=== PATIENT | female | born 1955 | race Hispanic/Latino ===

== ENCOUNTER 2022-01-02 13:45 | Outpatient (CLI) | payer OTHER | END 2022-01-02 13:46 | disposition home or self-care (01) | LOC: BICMAMMO 13:45 | PROVIDERS: ATTEND Nurse Practitioner Family | DX: Z12.31 Encounter for screening mammogram for malignant neoplasm of breast (principal) | CPT/HCPCS: 77063; 77067 ==

== ENCOUNTER 2022-01-31 08:19 | Outpatient (CLI) | payer OTHER ==
[2022-01-31] MEDS ORDERED: Iopamidol 370 76% 100 ML VIAL ONE (09:18)
== END 2022-01-31 08:20 | disposition home or self-care (01) ==
LOC: BICCT 08:19
PROVIDERS: ATTEND Neurological Surgery
DX: M50.11 Cervical disc disorder with radiculopathy, high cervical region (principal); M51.16 Intervertebral disc disorders with radiculopathy, lumbar region; R51.9 Headache, unspecified; M54.81 Occipital neuralgia; M51.37 Other intervertebral disc degeneration, lumbosacral region; M51.25 Other intervertebral disc displacement, thoracolumbar region; M48.061 Spinal stenosis, lumbar region without neurogenic claudication; M48.05 Spinal stenosis, thoracolumbar region
CPT/HCPCS: 70496; 72141; 72148; 82565; Q9967

== ENCOUNTER 2025-01-13 09:06 | Outpatient (CLI) | payer OTHER ==
[2025-01-13 09:40] LABS: Estimated GFR - POC 61.0
[2025-01-13] MEDS ORDERED: Iopamidol 370 76% 100 ML VIAL ONE (10:30)
== END 2025-01-13 09:07 | disposition home or self-care (01) ==
LOC: CT 09:06
PROVIDERS: ATTEND Internal Medicine Gastroenterology
DX: R10.31 Right lower quadrant pain (principal); R91.8 Other nonspecific abnormal finding of lung field; I70.208 Unspecified atherosclerosis of native arteries of extremities, other extremity; Z90.49 Acquired absence of other specified parts of digestive tract
CPT/HCPCS: 36415; 74177; 82565; Q9967